=== PATIENT | female | born 1985 | race Caucasian/White ===

== ENCOUNTER 2021-11-23 10:25 | Outpatient (REF) | payer OTHER, SELFPAY ==
[2021-11-23 13:13] LABS: Binax Internal Control QC Valid; Binax Now Covid-19 Ag Negative (Negative)
[2021-11-23 13:14] LABS: Binax Lot number: 9864
== END 2021-11-23 10:26 | disposition home or self-care (01) ==
LOC: HO.LAB 10:25
PROVIDERS: Visit Provider Internal Medicine
DX: Z20.822 Contact with and (suspected) exposure to COVID-19 (principal)
CPT/HCPCS: 36415

== ENCOUNTER 2022-10-05 12:44 | Outpatient (REF) | payer OTHER, SELFPAY ==
[2022-10-05 14:26] LABS: Hematocrit 39.3 % (37.0-47.0); Mean Corpuscular HGB Conc 33.1 g/dl (31.0-35.0); Mean Corpuscular Volume 84.7 fL (80.0-98.0); Mean Platelet Volume 10.5 fL (9.4-12.3); Platelet Count 311 X10*3/uL (160-400); Red Blood Count 4.64 X10*6/uL (4.20-5.50); Red Cell Distribution Width 12.5 % (11.0-16.0); White Blood Count 9.6 X10*3/uL (4.8-10.8)
[2022-10-05 15:39] LABS: Alanine Aminotransferase 14 U/L (0-31); Albumin Level 4.6 g/dL (3.5-5.0); Alkaline Phosphatase 73 U/L (39-117); Anion Gap 13 (12-20); Aspartate Amino Transferase 16 U/L (5-31); Bilirubin Total 0.8 mg/dL (0.0-1.0); Blood Urea Nitrogen 13 mg/dL (9-16); Calcium 9.7 mg/dL (8.4-10.2); Carbon Dioxide 25 mmol/L (22-29); Chloride 105 mmol/L (96-108); Cholesterol 156 mg/dL; Estimated Glomerular Filt Rate > 60; Glucose Fasting 81 mg/dL (60-99); HDL Cholesterol 44 mg/dL; LDL Cholesterol Calculated 99 mg/dl; Sodium 139 mmol/L (135-145); TSH reflex Free T4 3.43 uIU/mL (0.32-4.0); Total Protein 7.9 g/dL (6.5-8.0); Triglycerides 69 mg/dL
== END 2022-10-05 12:45 | disposition home or self-care (01) ==
LOC: HO.WFDLDS 12:44
PROVIDERS: Visit Provider Hospitalist
DX: Z00.00 Encounter for general adult medical examination without abnormal findings (principal)
CPT/HCPCS: 36415; 80053; 80061; 84443; 85027

== ENCOUNTER 2025-02-24 15:39 | Outpatient (AMB) | payer OTHER, SELFPAY ==
--- NOTE | 2025-02-24 15:41 | MHC.PC.OV ---
Vital Signs 02/24/25 15:48 Height 5 ft 3 in Weight 137 lb 8 oz BMI 24.4 BP 112/60 Blood Pressure Location Rt brachial Position Sitting Respiration 12 Pulse 85 Pulse Source Pulse Oximeter Pulse Oximetry (%) 96 Oxygen Delivery Method Room Air Intake Visit Reasons: mariaa javier Intake Note: Glendy presents in the office for a MARIAA. Marzipan Molder Required: No Allergies metoclopramide [Reglan] Allergy (Mild, Verified 02/24/25 15:46) Abdominal Pain Tobacco use date assessed: 02/24/25 Dental Screening Did you have a dental visit in the last 12 months?: Yes Did you have a dental problem in the last 6 months where you did not have access to dental care?: No Was dental information given to patient?: Patient has dentist HPI HPI Comments History of Present Illness Details This is a 39-year-old female with a past medical history of asthma who presenting to establish care with me. She transferred from a provider who is no longer at the practice. She is accompanied by her daughter and her 1-year-old son. He also has a 10-year-old son. Patient has had a skin tag on her left eyelid for years. She saw [facility], but they told her they do not perform eyelid surgery. It has gotten bigger slowly over time. It itches. It bothers her every day. She also has a scalp cyst on the left side that has been there for years. It has not grown. It is never required incision and drainage, but it does hurt sometimes and she accidentally scratches it when she is trying to brush her hair. She has a history of environmental allergies. Patient says allergy testing in the past showed she was allergic to dust. Endorses sneezing and itching when she is cleaning leonid areas of the house. Also has dermatographism. 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 Patient endorses right lateral hip pain for a month. It comes and goes. No alleviating factors. It is worse in the morning after being in bed all night. It is described as sharp and aching. It does not radiate down the leg or to the abdomen. 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 She feels like this might be causing some of the pain on the right side. No trauma. No bruising or redness. No loss of bowel or bladder control, numbness, tingling or weakness associated with this. She has a history of anemia. She is overdue for routine labs. ROS: Constitutional: No unexplained weight loss, fever, chills Eyes: No vision changes, blurry vision, double vision, eye pain, eye redness, eye discharge. Respiratory: No shortness of breath Cardiovascular: No chest pain. Gastrointestinal: No anorexia, nausea, vomiting or diarrhea. No abdominal pain or blood in stool. Genitourinary: No dysuria, hematuria, urinary frequency. Neurologic: No headache, dizziness, syncope, unilateral weakness, ataxia, numbness or tingling in the extremities. Musculoskeletal: see HPI Hematologic/Lymphatics: No bleeding or bruising. Skin: see HPI Psychiatric: No depression or anxiety. Physical exam: Constitutional: Alert, in no distress. Eyes: Pupils are equal, round and reactive to light. Extraocular muscles intact. Respiratory: Clear to auscultation. Cardiovascular: S1 S2 regular. No murmurs. Gastrointestinal: Abdomen soft, non-tender, non-distended. Normal bowel sounds. Genitourinary: No costovertebral angle tenderness. Neurologic: No focal neurological deficits. Symmetric patellar reflexes. Moves all extremities spontaneously. Sensation intact bilaterally. Skin: There is a skin tag on the medial upper left eyelid. There is a quarter-sized firm palpable nodular lesion on the left occipital area without erythema, fluctuance or discharge. Musculoskeletal: Spine, hips, SI joints and back nontender to palpation. Full range of motion of the hips and lower back. No crepitus. Lower extremity strength 5/5 bilaterally. Extremities: Warm and well perfused. No clubbing, cyanosis or edema. FORMERLY [facility], [facility]–1983 Medical History (Updated 02/24/25 @ 17:15 by JERMAN Gonzalez) History of anemia Lesion of right eyelid Right hip pain Family History (Updated 02/24/25 @ 16:24 by Rena Maharaj MA) Mother Thyroid disease Carpal tunnel syndrome Maternal Grandmother Breast cancer Hypertension Cataract COPD (chronic obstructive pulmonary disease) Rheumatoid osteoperiostitis Maternal Grandfather Chronic kidney disease Hypertension Skin cancer COPD (chronic obstructive pulmonary disease) Diabetes Social History (Updated 02/24/25 @ 15:47 by Rena Maharaj MA) Housing: House Alcohol intake: never Patient Tobacco Use Status: Never used Tobacco e-Cigarette/Vaping Use: Never Used Second Hand Smoke Exposure: Yes Substance Use Type: Marijuana service: No Current occupational status: employed Current occupational exposures/hazards: No Cognitive needs: No Hearing needs: No Vision needs: No Questionnaire PHQ-9 Over the last 2 weeks, how often have you been bothered by any of the following problems? 1. Little interest or pleasure in doing things: not at all 2. Feeling down, depressed, or hopeless: not at all 3. Trouble falling or staying asleep, or sleeping too much: not at all 4. Feeling tired or having little energy: nearly every day 5. Poor appetite or overeating: not at all 6. Feeling bad about yourself - or that you are a failure or have let yourself or your family down: not at all 7. Trouble concentrating on things, such as reading the newspaper or watching television: not at all 8. Moving or speaking so slowly that other people could have noticed. Or the opposite - being so fidgety or restless that you have been moving around a lot more than usual: not at all 9. Thoughts that you would be better off or of hurting yourself in some way: not at all Total score: 3 Depression Screening Interpretation: Negative Depression Screening Done: Yes 13921 - PHQ-9 Billing: Patient declined-do not bill Source: Developed by Drs. Jimmy Dean, Tika Reaves, Peter Hernández and colleagues, with an educational rafiq from [employer]. Thrive Questionnaire Date Thrive assessed: 02/24/25 I am a: Patient What is your living situation today?: I have a steady place to live Within the past 12 months, did the food you bought not last and you didn't have the money to get more?: Never true Within the past 12 months, did you worry whether your food would run out before you got money to buy more?: Never true Do you have trouble paying for medicines?: No Do you have trouble getting transportation to medical appointments?: No Do you have trouble paying your heating and electricity bill?: No Do you have trouble taking care of your child, family member or friend?: No Do you have trouble with day-to-day activities such as bathing, preparing meals, shopping, managing finances, etc.?: No Are you currently unemployed and looking for a job?: No Are you interested in more education?: No Please select the resources that you would like help with: None Currently or been in a relationship where the following occur: No concerns reported THRIVE Score: 0 AUDIT C Alcohol Use Questionnaire (AUDIT-C) 1. How often do you have a drink containing alcohol?: Never Total Score: 0 CLEOPATRA-7 AMB Questionnaire CLEOPATRA-7 Date CLEOPATRA - 7 assessed: 02/24/25 Feeling nervous, anxious, or on edge: 0 = Not at all Not being able to stop or control worryin = Not at all Worrying too much about different things: 0 = Not at all Trouble relaxin = Not at all Being so restless that it is hard to sit still: 0 = Not at all Becoming easily annoyed or irritable: 0 = Not at all Feeling afraid as if something awful might happen: 0 = Not at all Total CLEOPATRA-7 score (0-4 normal; 5-9 mild; 10-14 moderate; 15-21 severe): 0 Source: Developed by Drs. Jimmy Dean, Tika Reaves, Peter Hernández and colleagues, with an educational rafiq from [employer]. CLEOPATRA-7 Assessment Billing CLEOPATRA-7 Assessment Tool: CLEOPATRA-7 Assessment 28376 Physical exam (Primary Care) Vital Signs: Last Vital Signs Pulse 85 02/24/25 15:48 Resp 12 02/24/25 15:48 BP 112/60 02/24/25 15:48 Pulse Ox 96 02/24/25 15:48 Oxygen Delivery Method Room Air 02/24/25 15:48 BMI result Body Mass Index 24.4 Tobacco/Smoking Status: Tobacco use Status Tobacco use date assessed 02/24/25 02/24/25 15:53 Patient Tobacco Use Status Never used Tobacco 02/24/25 15:47 e-Cigarette/Vaping Use Never Used 02/24/25 15:53 PHQ-9: PHQ-9 Score PHQ-9: Total score 3 02/24/25 16:07 Depression Screening Interpretation: Negative Thrive Assessment: Date of Thrive Assessment Date Thrive assessed 02/24/25 02/24/25 15:53 Currently or been in a relationship where the following occur: No concerns reported Coding Level of Care Code Est Pt Level 4 (61436) Complex EM visit Add On G2211 Diagnoses Scalp cyst L72.9 Lesion of right eyelid H02.9 Right hip pain M25.551 History of anemia Z86.2 Screening for cardiovascular condition Z13.6 Additional Codes CLEOPATRA-7 Assessment Billing - CLEOPATRA-7 Assessment Tool: CLEOPATRA-7 Assessment 79957 ([id number]) Assessment & Plan Assessment & Plan (1) Scalp cyst: Code(s): L72.9 - Follicular cyst of the skin and subcutaneous tissue, unspecified Category: Medical Plan: Referred to dermatology. (2) Lesion of right eyelid: Code(s): H02.9 - Unspecified disorder of eyelid Category: Medical Plan: Refer to Plastic surgery. (3) Right hip pain: Code(s): M25.551 - Pain in right hip Category: Medical Plan: Check x-ray. She can try heat, ice and Tylenol as needed. Do not exceed 3000 mg per day. Refer to physical therapy if x-ray is negative. (4) History of anemia: Code(s): Z86.2 - Personal history of diseases of the blood and blood-forming organs and certain disorders involving the immune mechanism Category: Medical Plan: Check labs. (5) Screening for cardiovascular condition: Code(s): Z13.6 - Encounter for screening for cardiovascular disorders Plan Follow up in 8 weeks to recheck hip pain and for a physical exam. Orders: Orders TSH reflex Free T4 Today H02.9 - Unspecified disorder of eyelid, Z13.6 - Encounter for screening for cardiovascular disorders, Z86.2 - Personal history of diseases of the blood and blood-forming organs and certain disorders involving the immune mechanism Comprehensive Met. Panel Today H02.9 - Unspecified disorder of eyelid, Z13.6 - Encounter for screening for cardiovascular disorders, Z86.2 - Personal history of diseases of the blood and blood-forming organs and certain disorders involving the immune mechanism Complete Blood Count no Diff Today H02.9 - Unspecified disorder of eyelid, Z13.6 - Encounter for screening for cardiovascular disorders, Z86.2 - Personal history of diseases of the blood and blood-forming organs and certain disorders involving the immune mechanism Lipid Panel Today E78.5 - Hyperlipidemia, unspecified, H02.9 - Unspecified disorder of eyelid, Z13.6 - Encounter for screening for cardiovascular disorders, Z86.2 - Personal history of diseases of the blood and blood-forming organs and certain disorders involving the immune mechanism XR hip RT w PEL1V Today M25.551 - Pain in right hip Vitamin B12 Today H02.9 - Unspecified disorder of eyelid, Z13.6 - Encounter for screening for cardiovascular disorders, Z86.2 - Personal history of diseases of the blood and blood-forming organs and certain disorders involving the immune mechanism, Z91.89 - Other specified personal risk factors, not elsewhere classified Vitamin D 25-OH (D2 and D3) Today H02.9 - Unspecified disorder of eyelid, M85.80 - Other specified disorders of bone density and structure, unspecified site, Z13.6 - Encounter for screening for cardiovascular disorders, Z86.2 - Personal history of diseases of the blood and blood-forming organs and certain disorders involving the immune mechanism IRON PROFILE Today H02.9 - Unspecified disorder of eyelid, Z13.6 - Encounter for screening for cardiovascular disorders, Z86.2 - Personal history of diseases of the blood and blood-forming organs and certain disorders involving the immune mechanism Ferritin Today H02.9 - Unspecified disorder of eyelid, Z13.6 - Encounter for screening for cardiovascular disorders, Z86.2 - Personal history of diseases of the blood and blood-forming organs and certain disorders involving the immune mechanism
[2025-02-24 15:48] VITALS: BP 112/60; PULSE 85; RESP 12; O2SAT 96; BMI 24.4
--- OUTSIDE RECORDS SUMMARY | 2025-02-24 18:24 | XMS_ITS | Clinical Summary ---
Author Organization [facility] ity Address [address] [place] [address] Care Team Providers Care Glass Products Inspector Name Role Phone Unavailable Primary Care Provider Unavailabl e Social History Tobacco Use Types Packs/Day Years Used Date Smoking Tobacco: Never Assessed Comments Unknown Sex and Gender Information Value Date Recorded Sex Assigned at Not on file Legal Sex Female 4:36 AM EST Gender Identity Not on file Sexual Orientation Not on file Plan of Treatment Health Maintenance Due Date Last Done Comments DTaP,Tdap,and Td Vaccines (1 - Tdap) 2005 Hepatitis B Vaccines (1 of 3 - 19+ 3-dose series) 2005 Cervical Cancer Screening: P ap Smear 2007 Depression Screening 12/19/2023 HIV Screening 12/19/2023 Hepatitis C Screening 12/19/2023 Social Influencers of Health Screening 12/19/2023 COVID-19 Vaccine (2023-2 5 season) 2024 Influenza Vaccine (#1) 2024 HIB Vaccines Aged Out No longer eligi ble based on patient's age to complete this topic HPV Vaccines Aged Out No longer eligi ble based on patient's age to complete this topic Hepatitis A Vaccines Aged Out No long er eligible based on patient's age to complete this topic IPV Vaccines Aged Out No longer eligi ble based on patient's age to complete this topic MMR Vaccines Aged Out No longer eligi ble based on patient's age to complete this topic Meningococcal ACWY Vaccine Aged Out N o longer eligible based on patient's age to complete this topic Meningococcal B Vaccine Aged Out No l onger eligible based on patient's age to complete this topic Pneumococcal Vaccine: Pediat rics (0 to 5 Years) and At-Risk Patients (6 to 64 Years) Aged Out No longer eligible b ased on patient's age to complete this topic RSV Immunization Patients Un lolita 20 months Aged Out No longer eligible b ased on patient's age to complete this topic Varicella Vaccines Aged Out No longer eligible based on patient's age to complete this topic
== END 2025-02-24 16:18 | disposition home or self-care (01) ==
LOC: HO.HMCFM 15:39
PROVIDERS: PCP Physician Assistant Medical; Visit Provider Physician Assistant Medical
DX: L72.9 Follicular cyst of the skin and subcutaneous tissue, unspecified (principal); H02.9 Unspecified disorder of eyelid; M25.551 Pain in right hip; Z86.2 Personal history of diseases of the blood and blood-forming organs and certain disorders involving the immune mechanism; Z13.6 Encounter for screening for cardiovascular disorders

== ENCOUNTER → 2025-02-24 15:39 | Outpatient (BNVA) | payer OTHER, SELFPAY | PROVIDERS: PCP Physician Assistant Medical; Visit Provider Physician Assistant Medical | DX: L72.9 Follicular cyst of the skin and subcutaneous tissue, unspecified (principal); H02.9 Unspecified disorder of eyelid; M25.551 Pain in right hip; E78.5 Hyperlipidemia, unspecified; Z86.2 Personal history of diseases of the blood and blood-forming organs and certain disorders involving the immune mechanism | CPT/HCPCS: 96127; 99212 ==

== ENCOUNTER 2025-02-25 08:48 | Outpatient (REF) | payer OTHER, SELFPAY ==
--- OUTSIDE RECORDS SUMMARY | 2025-02-25 09:20 | XMS_ITS | Clinical Summary ---
Author Organization [facility] ity Address [address] [place] [address] Care Team Providers Care Diagnostic Technologist Name Role Phone Unavailable Primary Care Provider [...]
[2025-02-25 09:29] LABS: Hemoglobin 12.4 g/dl (12.0-16.0); Mean Corpuscular HGB Conc 32.6 g/dl (31.0-35.0); Mean Corpuscular Hemoglobin 27.4 pg (27.0-33.0); Mean Corpuscular Volume 84.1 fL (80.0-98.0); Mean Platelet Volume 10.4 fL (9.4-12.3); Platelet Count 272 X10*3/uL (160-400); Red Blood Count 4.52 X10*6/uL (4.20-5.50); Red Cell Distribution Width 13.7 % (11.0-16.0)
[2025-02-25 10:19] LABS: Alanine Aminotransferase 18 U/L (0-31); Albumin Level 4.4 g/dL (3.5-5.0); Alkaline Phosphatase 125 U/L (39-117); Anion Gap 11 (12-20); Aspartate Amino Transferase 20 U/L (5-31); Bilirubin Total 0.5 mg/dL (0.0-1.0); Blood Urea Nitrogen 13 mg/dL (9-16); Calcium 9.7 mg/dL (8.4-10.2); Carbon Dioxide 25 mmol/L (22-29); Chloride 108 mmol/L (96-108); Cholesterol 162 mg/dL (<200); Estimated Glomerular Filt Rate > 60; Glucose Random 92 mg/dL (60-115); HDL Cholesterol 46 mg/dL (>40); Iron 97 mcg/dL (30-160); LDL Cholesterol Calculated 105 mg/dL (<100); Percent Iron Saturation 26 % (15-50); Sodium 140 mmol/L (135-145); Total Iron Binding Capacity 373 mcg/dL (228-428); Total Protein 7.7 g/dL (6.5-8.0); Triglycerides 56 mg/dL (<150); Unsaturated Iron Binding 276 ug/dL
[2025-02-25 10:38] LABS: Ferritin 26 ng/mL (10-122); TSH reflex Free T4 3.02 uIU/mL (0.32-4.0)
[2025-02-25 10:40] LABS: Vitamin B12 648 pg/mL (200-900)
[2025-03-01 15:59] LABS: Vitamin D 25-OH, D2 <4 ng/mL; Vitamin D 25-OH, D3 26 ng/mL; Vitamin D 25-OH, Total 26 ng/mL (30-100)
== END 2025-02-25 08:49 | disposition home or self-care (01) ==
LOC: HO.LAB 08:48
PROVIDERS: PCP Physician Assistant Medical; Visit Provider Physician Assistant Medical
DX: H02.9 Unspecified disorder of eyelid (principal); Z86.2 Personal history of diseases of the blood and blood-forming organs and certain disorders involving the immune mechanism; Z13.6 Encounter for screening for cardiovascular disorders; E78.5 Hyperlipidemia, unspecified; Z91.89 Other specified personal risk factors, not elsewhere classified; M85.80 Other specified disorders of bone density and structure, unspecified site
CPT/HCPCS: 36415; 80053; 80061; 82306; 82607; 82728; 83540; 84443; 85027

== ENCOUNTER 2025-04-07 11:19 | Outpatient (REF) | payer OTHER, SELFPAY ==
--- NOTE | ~2025-04-07 | XR_ITS ---
EXAMINATION: XR HIP, RIGHT CLINICAL INFORMATION: M25.551 - Pain in right hip COMPARISON: None available. TECHNIQUE: AP pelvis, and 2 views of the right hip. FINDINGS: No fracture, dislocation, or suspicious bone lesion. Normal alignment of both hip joints. Joint spaces preserved. No significant arthropathy identified of either hip. Femoral heads are normal in contour without evidence of AVN. No soft tissue abnormalities. XR/XR hip RT w PEL1V IMPRESSION: Normal pelvis and right hip. Electronically signed by: New Kim MD 04/07/2025 11:54 AM EDT
--- OUTSIDE RECORDS SUMMARY | 2025-04-07 12:04 | XMS_ITS | Clinical Summary ---
Author Organization [facility] ity Address [address] [place] [address] Care Team Providers Care Childbirth Educator Name Role Phone Unavailable Primary Care Provider [...] Vaccine (2023-2 5 season) 2024 Influenza Vaccine (Season Ended) 2025 HIB Vaccines Aged Out No longer eligi [...]
== END 2025-04-07 11:20 | disposition home or self-care (01) ==
LOC: HO.XRAY 11:19
PROVIDERS: PCP Physician Assistant Medical; Visit Provider Physician Assistant Medical
DX: M25.551 Pain in right hip (principal)
CPT/HCPCS: 73502

== ENCOUNTER → 2025-04-07 11:25 | Outpatient (BNV) | payer OTHER, SELFPAY | PROVIDERS: PCP Physician Assistant Medical; Visit Provider Radiology Diagnostic Radiology | DX: M25.551 Pain in right hip (principal) | CPT/HCPCS: 73502 ==

== ENCOUNTER 2025-05-01 11:46 | Outpatient (AMB) | payer OTHER, SELFPAY ==
--- NOTE | 2025-05-01 11:56 | A.OFFPC_ITS ---
Vital Signs 05/01/25 12:02 Height 5 ft 3 in Weight 136 lb 2 oz BMI 24.1 BP 122/68 Blood Pressure Location Lt brachial Position Sitting Respiration 12 Pulse 83 Pulse Source Pulse Oximeter Temp 97.4 F Temp Source Temporal Artery Scan Pulse Oximetry (%) 100 Oxygen Delivery Method Room Air Intake Visit Reasons: physical exam Intake Note: Glendy presents in the office today for her annual physical. Allergies metoclopramide [Reglan] Allergy (Mild, Verified 05/01/25 12:01) Abdominal Pain Medication List - Last Reconciled 05/01/25 by JERMAN Gonzalez albuterol sulfate 90 mcg/actuation (Ventolin HFA) 2 puffs inhalation Q4-6H PRN 1 month cholecalciferol (vitamin D3) 25 mcg PO DAILY Tobacco use date assessed: 05/01/25 Dental Screening Dental Screen Date: 05/01/25 Did you have a dental visit in the last 12 months?: Yes Did you have a dental problem in the last 6 months where you did not have access to dental care?: No Was dental information given to patient?: Patient has dentist HPI HPI Comments History of Present Illness Details This is a 39-year-old female with a past medical history of asthma presenting for a physical exam. Patient endorses intermittent pressure sometimes in the right eye, sometimes in the left eye or in both eyes. This started about a month ago. It lasts 5-10 minutes. No headache, vision changes or loss of vision, discharge, eye redness, sinus symptoms, fevers or chills. She has not seen an eye doctor recently. I referred her to [facility] eye care and provided her with the contact number. I also advised the patient to go to the ER if she develops vision changes, severe pain or pressure, headache or other concerning symptoms. Denies eye pressure today. Patient has had a skin tag on her left eyelid for years. She saw [facility], but they told her they do not perform eyelid surgery. It has gotten bigger slowly over time. It itches. It bothers her every day. I referred her to Plastic surgery, and it was sent to [facility]. She is unclear about this, but she thinks they may have called and said that they do not perform this procedure, but at the same time she says an appointment may have been booked. The office will contact [facility] to investigate this. I referred her to Dermatology for the scalp cyst we discussed previously. She has an appointment scheduled [facility], but she does not know what it is. She thinks they were booking pretty far out. I referred her to General surgery to see if she can be seen sooner. She continues to endorse right lateral hip pain. It comes and goes. No alleviating factors. It is worse in the morning after being in bed all night. It is described as sharp and aching. It does not radiate down the leg or to the abdomen. 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 She feels like this might be causing some of the pain on the right side. No trauma. No bruising or redness. No loss of bowel or bladder control, numbness, tingling or weakness associated with this. X-ray was negative. She would like an x-ray of her back because she was told that she had scoliosis in the past. Order placed. I also referred her to physical therapy. We reviewed her lab work because she did not see the portal message. She will start the vitamin-D supplement. I sent this again to the pharmacy. Patient reports she is up-to-date with Tdap-received during . ROS: Constitutional: No unexplained weight loss, fever, chills, fatigue or night sweats. Eyes: No vision changes, blurry vision, double vision, eye redness, eye discharge. See HPI ENT: No hearing loss, sneezing, congestion, runny nose or sore throat. Respiratory: No shortness of breath, cough or sputum production. Cardiovascular: No chest pain, chest pressure or chest discomfort. No palpitations or pedal edema. Gastrointestinal: No anorexia, nausea, vomiting or diarrhea. No abdominal pain or blood in stool. Genitourinary: No dysuria, hematuria, urinary frequency. Neurologic: No headache, dizziness, syncope, unilateral weakness, ataxia, numbness or tingling in the extremities. Musculoskeletal: See HPI Hematologic/Lymphatics: No bleeding or bruising. No painful lymph nodes. Skin: No rash Endocrine: No cold or heat intolerance. No polyuria or polydipsia. Psychiatric: No depression or anxiety. No SI/HI. Physical exam: Constitutional: Alert, in no distress. Head: Normocephalic. Eyes: Pupils are equal, round and reactive to light. Extraocular muscles intact. Ear, Nose and Throat: Canals clear. TMs normal. Normal nasal mucosa. No nasal discharge. No oral lesions. Neck: Supple, Full range of motion. No lymphadenopathy. No palpable thyroid masses. Respiratory: Clear to auscultation. Cardiovascular: S1 S2 regular. No murmurs. Gastrointestinal: Abdomen soft, non-tender, non-distended. Normal bowel sounds. No palpable masses. Neurologic: No focal neurological deficits. Symmetric patellar reflexes. Moves all extremities spontaneously. Sensation intact bilaterally. Skin: There is a skin tag on the medial upper left eyelid. There is a quarter- sized firm palpable nodular lesion on the left occipital area without erythema, fluctuance or discharge. Musculoskeletal: No gross deformities. Normal range of motion. Extremities: Warm and well perfused. No clubbing, cyanosis or edema. 3+ peripheral pulses bilaterally. Psychiatric: Normal mood and affect COUNT INCLUDES THE [facility] Medical History (Updated 05/01/25 @ 13:38 by JERMAN Gonzalez) Routine physical examination Eye pressure Scoliosis Lesion of left eyelid History of anemia Right hip pain Family History Mother Thyroid disease Carpal tunnel syndrome Maternal Grandmother Breast cancer Hypertension Cataract COPD (chronic obstructive pulmonary disease) Rheumatoid osteoperiostitis Maternal Grandfather Chronic kidney disease Hypertension Skin cancer COPD (chronic obstructive pulmonary disease) Diabetes Social History (Updated 05/01/25 @ 12:02 by Rena Maharaj MA) Housing: House Alcohol intake: never Patient Tobacco Use Status: Never used Tobacco e-Cigarette/Vaping Use: Never Used Second Hand Smoke Exposure: Yes Substance Use Type: Marijuana service: No Current occupational status: employed Current occupational exposures/hazards: No Cognitive needs: No Hearing needs: No Vision needs: No Questionnaire PHQ-9 Over the last 2 weeks, how often have you been bothered by any of the following problems? 1. Little interest or pleasure in doing things: not at all 2. Feeling down, depressed, or hopeless: not at all 3. Trouble falling or staying asleep, or sleeping too much: not at all 4. Feeling tired or having little energy: several days 5. Poor appetite or overeating: not at all 6. Feeling bad about yourself - or that you are a failure or have let yourself or your family down: not at all 7. Trouble concentrating on things, such as reading the newspaper or watching television: not at all 8. Moving or speaking so slowly that other people could have noticed. Or the opposite - being so fidgety or restless that you have been moving around a lot more than usual: not at all 9. Thoughts that you would be better off or of hurting yourself in some way: not at all Total score: 1 Depression Screening Interpretation: Negative Depression Screening Done: Yes 45003 - PHQ-9 Billing: Yes Source: Developed by Drs. Jimmy Dean, Tika Reaves, Peter Hernández and colleagues, with an educational rafiq from [employer]. Thrive Questionnaire Date Thrive assessed: 05/01/25 I am a: Patient What is your living situation today?: I have a steady place to live Within the past 12 months, did the food you bought not last and you didn't have the money to get more?: Never true Within the past 12 months, did you worry whether your food would run out before you got money to buy more?: Never true Do you have trouble paying for medicines?: No Do you have trouble getting transportation to medical appointments?: No Do you have trouble paying your heating and electricity bill?: No Do you have trouble taking care of your child, family member or friend?: No Do you have trouble with day-to-day activities such as bathing, preparing meals, shopping, managing finances, etc.?: No Are you currently unemployed and looking for a job?: No Are you interested in more education?: No Please select the resources that you would like help with: None Currently or been in a relationship where the following occur: No concerns reported THRIVE Score: 0 CLEOPATRA-7 AMB Questionnaire CLEOPATRA-7 Date CLEOPATRA - 7 assessed: 05/01/25 Feeling nervous, anxious, or on edge: 0 = Not at all Not being able to stop or control worryin = Not at all Worrying too much about different things: 0 = Not at all Trouble relaxin = Not at all Being so restless that it is hard to sit still: 0 = Not at all Becoming easily annoyed or irritable: 1 = Several days Feeling afraid as if something awful might happen: 0 = Not at all Total CLEOPATRA-7 score (0-4 normal; 5-9 mild; 10-14 moderate; 15-21 severe): 1 Source: Developed by Drs. Jimmy Dean, Tika Reaves, Peter Hernández and colleagues, with an educational rafiq from [employer]. CLEOPATRA-7 Assessment Billing CLEOPATRA-7 Assessment Tool: CLEOPATRA-7 Assessment 96739 Physical exam (Primary Care) Vital Signs: Last Vital Signs Temp 97.4 F 05/01/25 12:02 Pulse 83 05/01/25 12:02 Resp 12 05/01/25 12:02 BP 122/68 05/01/25 12:02 Pulse Ox 100 05/01/25 12:02 Oxygen Delivery Method Room Air 05/01/25 12:02 BMI result Body Mass Index 24.1 Tobacco/Smoking Status: Tobacco use Status Tobacco use date assessed 05/01/25 05/01/25 11:58 Patient Tobacco Use Status Never used Tobacco 05/01/25 12:02 e-Cigarette/Vaping Use Never Used 05/01/25 12:02 PHQ-9: PHQ-9 Score PHQ-9: Total score 1 05/01/25 13:39 Depression Screening Interpretation: Negative Thrive Assessment: Date of Thrive Assessment Date Thrive assessed 05/01/25 05/01/25 11:58 Currently or been in a relationship where the following occur: No concerns reported Coding Level of Care Code Est Pt Prev Care 18-39y(99994) Diagnoses Routine physical examination Z00.00 Eye pressure H57.9 Scoliosis M41.9 Lesion of left eyelid H02.9 Right hip pain M25.551 Additional Codes CLEOPATRA-7 Assessment Billing - CLEOPATRA-7 Assessment Tool: CLEOPATRA-7 Assessment 96819 ([id number]) PHQ-9 - 77663 - PHQ-9 Billing: Yes ([id number]) Assessment & Plan Assessment & Plan (1) Routine physical examination: Code(s): Z00.00 - Encounter for general adult medical examination without abnormal findings Category: Medical Plan: Patient is seen today for a routine physical. As part of this visit we reviewed the following issues, which are considered and essential part of preventative health in this age group: - Breast Cancer screening - Annual Director Phone exam - Blood pressure screening - Cholesterol screening - Osteoporosis prevention including calcium/vitamin D intake, weight bearing exercise & smoking cessation - Nutritional and exercise counseling - Counseling of injury prevention including fire prevention, smoke alarms and seat belt usage - Screening for depression - Prevention of and/or testing for infectious diseases - Education about skin cancer - Recommendations about immunizations - Recommendation of an eye exam - Screening for substance abuse (2) Eye pressure: Code(s): H57.9 - Unspecified disorder of eye and adnexa Category: Medical (3) Scoliosis: Code(s): M41.9 - Scoliosis, unspecified Category: Medical (4) Lesion of left eyelid: Code(s): H02.9 - Unspecified disorder of eyelid Category: Medical (5) Right hip pain: Code(s): M25.551 - Pain in right hip Category: Medical Plan Follow up in 3 months Orders: Orders XR scoliosis survey Today M41.9 - Scoliosis, unspecified Referrals Ophthalmology Referral H57.9 - Unspecified disorder of eye and adnexa General Surgery Referral L72.9 - Follicular cyst of the skin and subcutaneous tissue, unspecified Medications: Refilled cholecalciferol (vitamin D3) 25 mcg PO DAILY 90 caps 1RF Patient Instructions: [facility] eye care AT physical therapy
[2025-05-01 12:02] VITALS: BP 122/68; PULSE 83; RESP 12; TEMP 36.3; O2SAT 100; BMI 24.1
--- OUTSIDE RECORDS SUMMARY | 2025-05-01 13:55 | XMS_ITS | Clinical Summary ---
Author Organization [facility] ity Address [address] [place] [address] Care Team Providers Care Shaft Repairer Name Role Phone Unavailable Primary Care Provider [...]
== END 2025-05-01 12:45 | disposition home or self-care (01) ==
LOC: HO.HMCFM 11:46
PROVIDERS: PCP Physician Assistant Medical; Visit Provider Physician Assistant Medical
DX: Z00.00 Encounter for general adult medical examination without abnormal findings (principal); H57.9 Unspecified disorder of eye and adnexa; M41.9 Scoliosis, unspecified; H02.9 Unspecified disorder of eyelid; M25.551 Pain in right hip

== ENCOUNTER → 2025-05-01 11:46 | Outpatient (BNVA) | payer OTHER, SELFPAY | PROVIDERS: PCP Physician Assistant Medical; Visit Provider Physician Assistant Medical | DX: Z00.00 Encounter for general adult medical examination without abnormal findings (principal); H57.9 Unspecified disorder of eye and adnexa; M41.9 Scoliosis, unspecified; H02.9 Unspecified disorder of eyelid; M25.551 Pain in right hip; L72.9 Follicular cyst of the skin and subcutaneous tissue, unspecified; Z13.31 Encounter for screening for depression; Z13.30 Encounter for screening examination for mental health and behavioral disorders, unspecified | CPT/HCPCS: 96127; 99395 ==

== ENCOUNTER 2025-06-05 11:31 | Outpatient (AMB) | payer OTHER, SELFPAY ==
--- NOTE | 2025-06-05 11:35 | MHC.OFFVIS ---
Vital Signs 06/05/25 11:47 Height 5 ft 3 in Weight 136 lb BMI 24.1 BP 136/65 Blood Pressure Location Lt brachial Position Sitting Pulse 72 Intake Visit Reasons: Follicular cyst of the skin Intake Note: Patient is seen in office for evaluation of a follicular cyst of the skin. Pt c/o: mass back of scalp, onset for yrs, minimal increase, at times has some odor denies redness, discharge, infections, no prior lumps removed Trading Floor Operator Required: No Accompanied by: Son Allergies metoclopramide (Reglan) Allergy (Mild, Verified 06/05/25 11:46) Abdominal Pain Medication List - Last Reconciled 06/05/25 by Carlin Sands MD albuterol sulfate 90 mcg/actuation (Ventolin HFA) 2 puffs inhalation Q4-6H PRN 1 month cholecalciferol (vitamin D3) 25 mcg PO DAILY HPI HPI Follicular cyst of the skin: Details: [age] year old female referred for a cyst on the scalp posteriorly. She says she has had this for many years. However, she thinks that this has increased in size. She says that this has been getting more uncomfortable and wants this removed. [facility] Medical History Routine physical examination Eye pressure Scoliosis Lesion of left eyelid History of anemia Right hip pain Family History Mother Thyroid disease Carpal tunnel syndrome Maternal Grandmother Breast cancer Hypertension Cataract COPD (chronic obstructive pulmonary disease) Rheumatoid osteoperiostitis Maternal Grandfather Chronic kidney disease Hypertension Skin cancer COPD (chronic obstructive pulmonary disease) Diabetes Social History Housing: House Alcohol intake: never Patient Tobacco Use Status: Never used Tobacco e-Cigarette/Vaping Use: Never Used Second Hand Smoke Exposure: Yes Substance Use Type: Marijuana service: No Current occupational status: employed Current occupational exposures/hazards: No Cognitive needs: No Hearing needs: No Vision needs: No Review of Systems Const Denies chills and Denies fever(s) Card Denies chest pain, Denies dyspnea and Denies dyspnea on exertion Resp Denies cough, Denies dyspnea and Denies dyspnea on exertion GI Denies hematochezia and Denies change in bowel habits Denies hematuria Musc Denies back pain and Denies limited range of motion Neuro Denies focal weakness and Denies convulsions Psych Denies depression and Denies mood swings Physical Exam Const General: comfortable and no acute distress Orientation/consciousness: patient oriented x3 HEENT Other: Occipital aspect of the scalp - cystic induration about 2.5 cm in diameter consistent with a scalp cyst, well-defined Neck Neck: Yes no lymphadenopathy Resp Auscultation: clear to auscultation bilaterally Cardio Rhythm: regular rhythm GI Palpation (GI): Soft to palpation, nontender and no guarding Neuro General: patient oriented x3 Assessment & Plan Assessment & Plan (1) Scalp cyst: Code(s): L72.9 - Follicular cyst of the skin and subcutaneous tissue, unspecified Category: Medical Plan I explained the technique of excision under local anesthesia. I reviewed the risks including but not limited to bleeding and infections, as well as the benefits and alternatives. She says she understands and wants to proceed. This will be done on her next visit in the office. Coding Level of Care Code New Pt Level 3 (82122) Diagnoses Scalp cyst L72.9
[2025-06-05 11:47] VITALS: BP 136/65; PULSE 72; BMI 24.1
--- OUTSIDE RECORDS SUMMARY | 2025-06-05 12:21 | XMS_ITS | Clinical Summary ---
Author Organization [facility] ity Address [address] [place] [address] Care Team Providers Care Manager Lsw Name Role Phone Unavailable Primary Care Provider [...] (2023-2 5 season) 2024 Influenza Vaccine (#1) 2025 HIB Vaccines Aged Out No longer [...] 5 Years) and At-Risk Patients (6 to 49 Years) Aged Out No longer eligible b ased on patient's age to complete this topic RSV Immunization Patients Un lolita 20 months Aged Out No longer eligible b ased on patient's age to complete this topic Varicella Vaccines Aged Out No longer eligible based on patient's age to complete this topic
== END 2025-06-05 11:56 | disposition home or self-care (01) ==
LOC: HO.HGS 11:32
PROVIDERS: PCP Physician Assistant Medical; Visit Provider Surgery
DX: L72.9 Follicular cyst of the skin and subcutaneous tissue, unspecified (principal)
CPT/HCPCS: 99203

== ENCOUNTER → 2025-06-05 11:31 | Outpatient (BNVA) | payer OTHER, SELFPAY | PROVIDERS: PCP Physician Assistant Medical; Visit Provider Surgery | DX: L72.9 Follicular cyst of the skin and subcutaneous tissue, unspecified (principal) | CPT/HCPCS: 99202 ==

== ENCOUNTER 2025-07-14 12:45 | Outpatient (REF) | payer OTHER, SELFPAY | END 2025-07-14 12:46 | disposition home or self-care (01) | LOC: HO.LNP 12:45 | PROVIDERS: PCP Physician Assistant Medical; Visit Provider Surgery | DX: L72.11 Pilar cyst (principal) | CPT/HCPCS: 11423; 88304 ==

== ENCOUNTER 2025-07-14 12:45 | Outpatient (AMB) | payer OTHER, SELFPAY ==
--- NOTE | 2025-07-14 12:49 | MHC.OFFVIS ---
Vital Signs 07/14/25 12:50 Height 5 ft 3 in Weight 135 lb BMI 23.9 BP 124/72 Blood Pressure Location Rt brachial Position Sitting Pulse 78 Intake Visit Reasons: excision Follicular cyst of the skin Intake Note: Patient here for excision of pilar cyst on scalp. Bill Board Poster Required: No Accompanied by: toddler son Allergies metoclopramide (Reglan) Allergy (Mild, Verified 07/14/25 12:56) Abdominal Pain HPI HPI excision Follicular cyst of the skin: Details: She is here for excision of a scalp cyst. [facility] Medical History Routine physical examination Eye pressure Scoliosis Lesion of left eyelid History of anemia Right hip pain Family History Mother Thyroid disease Carpal tunnel syndrome Maternal Grandmother Breast cancer Hypertension Cataract COPD (chronic obstructive pulmonary disease) Rheumatoid osteoperiostitis Maternal Grandfather Chronic kidney disease Hypertension Skin cancer COPD (chronic obstructive pulmonary disease) Diabetes Social History Housing: House Alcohol intake: never Patient Tobacco Use Status: Never used Tobacco e-Cigarette/Vaping Use: Never Used Second Hand Smoke Exposure: Yes Substance Use Type: Marijuana service: No Current occupational status: employed Current occupational exposures/hazards: No Cognitive needs: No Hearing needs: No Vision needs: No Physical Exam Vital Signs: Last Vital Signs Pulse 78 07/14/25 12:50 BP 124/72 07/14/25 12:50 BMI result Body Mass Index 23.9 Office Procedures Excision Details: She was in reclining position with the head turned to the right. The area of the scalp cyst was prepped and draped. Lidocaine 1% was used for local anesthesia. I made an incision on the skin overlying the cyst with a blade 15. This carried down through the full-thickness of the skin. Immediately the capsule was visualized. I sharply dissected the capsule from the subcutaneous layer with Metzenbaum scissors until this was delivered. This measured about 2.2 cm. I closed the incision with full-thickness nylon 3-0 simple sutures. The procedure was completed. She tolerated procedure well. There were no immediate complications. 46589-Phvnxdkc scalp/neck/hands/feet/genitalia 2.1cm-3cm Procedure code (CPT) selection complete Assessment & Plan Assessment & Plan (1) Scalp cyst: Code(s): L72.9 - Follicular cyst of the skin and subcutaneous tissue, unspecified Category: Medical Plan: Excision was done without problems. She tolerated the procedure well. There were no immediate complications. She was given wound care instructions and we will be seen for removal sutures in about 2 weeks. Coding Level of Care Code Procedure Only Diagnoses Scalp cyst L72.9 CPT Codes Scalp/Neck/Hands/Feet/Genetalia - CPT: 07167-Aathitun scalp/neck/hands/feet/genitalia 2.1cm-3cm ([id number])
[2025-07-14 12:50] VITALS: BP 124/72; PULSE 78; BMI 23.9
--- OUTSIDE RECORDS SUMMARY | 2025-07-14 13:52 | XMS_ITS | Clinical Summary ---
Author Organization [facility] ity Address [address] [place] [address] Care Team Providers Care Strap Machine Operator Automatic Name Role Phone Unavailable Primary Care Provider [...] Cervical Cancer Screening: P ap Smear 2007 HIV Screening 12/19/2023 Hepatitis C Screening 12/19/2023 Social Influencers of Health Screening 12/19/2023 COVID-19 Vaccine ( - 2023-2 5 season) 2024 Depression Screening 11/20/2024 Influenza Vaccine (#1) 2025 HIB Vaccines Aged [...]
== END 2025-07-14 13:23 | disposition home or self-care (01) ==
LOC: HO.HGS 12:46
PROVIDERS: PCP Physician Assistant Medical; Visit Provider Surgery
DX: L72.0 Epidermal cyst (principal)
CPT/HCPCS: 11423

== ENCOUNTER 2025-07-28 13:07 | Outpatient (AMB) | payer OTHER, SELFPAY ==
--- NOTE | 2025-07-28 13:37 | MHC.OFFVIS ---
Vital Signs 07/28/25 13:41 Height 5 ft 3 in Weight 136 lb 10.986 oz BMI 24.2 Intake Visit Reasons: s/p exc cyst~ scalp Intake Note: Patient is seen in office for post op assessment post excision of scalp cyst. Pt c/o: denies any concerns Automobile Service Advisor Required: No Accompanied by: Son Allergies metoclopramide (Reglan) Allergy (Mild, Verified 07/14/25 12:56) Abdominal Pain HPI HPI s/p exc cyst~ scalp: Details: Doing well, had some pain for the 1st day but this has resolved. Denies fevers or chills. Denies discharge from the area. Does report that it has been itchy lately [facility] Medical History Routine physical examination Eye pressure Scoliosis Lesion of left eyelid History of anemia Right hip pain Family History Mother Thyroid disease Carpal tunnel syndrome Maternal Grandmother Breast cancer Hypertension Cataract COPD (chronic obstructive pulmonary disease) Rheumatoid osteoperiostitis Maternal Grandfather Chronic kidney disease Hypertension Skin cancer COPD (chronic obstructive pulmonary disease) Diabetes Social History Housing: House Alcohol intake: never Patient Tobacco Use Status: Never used Tobacco e-Cigarette/Vaping Use: Never Used Second Hand Smoke Exposure: Yes Substance Use Type: Marijuana service: No Current occupational status: employed Current occupational exposures/hazards: No Cognitive needs: No Hearing needs: No Vision needs: No Review of Systems Const All systems reviewed & are unremarkable except as noted in HPI and below Physical Exam Vital Signs: BMI result Body Mass Index 24.2 Const General: comfortable and no acute distress Orientation/consciousness: patient oriented x3 HEENT Other: Posterior scalp excision site: 2 cm well healed excision site. Moderate scabbing in the area [address] Resp Effort & Inspection: normal respiratory effort and able to speak in complete sentences Neuro General: patient oriented x3 Assessment & Plan Assessment & Plan (1) Scalp cyst: Comment: S/p excision Code(s): L72.9 - Follicular cyst of the skin and subcutaneous tissue, unspecified Category: Medical Plan 39-year-old female s/p excision of scalp cyst presenting to the office for routine follow up and suture removal. Overall patient has been doing well. She had pain for about a day after but this has resolved. There was no discharge or drainage that she has noted. She denies fevers or chills at home. On exam the excision site appears to be healing well. There is a moderate amount of scabbing over the sutures. There was no discharge or redness surrounding the area and this was nontender to palpation. I removed 3 sutures in the office, she tolerated this well. There were no complications. We reviewed the pathology results showing a benign Pilar cyst. Patient no longer requiring follow up, can return with any questions or concerns in the future. Coding Level of Care Code Est Pt Level 3 (25545) Diagnoses Scalp cyst L72.9
[2025-07-28 13:41] VITALS: BMI 24.2
--- OUTSIDE RECORDS SUMMARY | 2025-07-28 15:32 | XMS_ITS | Clinical Summary ---
Author Organization [facility] ity Address [address] [place] [address] Care Team Providers Care Material Handling Warehouse Supervisor Name Role Phone Unavailable Primary Care Provider [...] 12/19/2023 Social Influencers of Health Screening 12/19/2023 Depression Screening 11/20/2024 COVID-19 Vaccine (2023-2 5 season) 2025 Influenza Vaccine (#1) 2025 HIB Vaccines Aged [...]
== END 2025-07-28 13:49 | disposition home or self-care (01) ==
LOC: HO.HGS 13:08
PROVIDERS: PCP Physician Assistant Medical
DX: L72.9 Follicular cyst of the skin and subcutaneous tissue, unspecified (principal)
CPT/HCPCS: 99213

== ENCOUNTER → 2025-07-28 13:07 | Outpatient (BNVA) | payer OTHER, SELFPAY | PROVIDERS: PCP Physician Assistant Medical | DX: L72.9 Follicular cyst of the skin and subcutaneous tissue, unspecified (principal) | CPT/HCPCS: 99212 ==

== ENCOUNTER 2025-08-04 10:58 | Outpatient (REF) | payer OTHER, SELFPAY ==
[2025-08-04 14:20] LABS: Appearance Urine Turbid; Glucose Urine UA Negative (Negative); PH 5.5 (5.0-9.0); Specific Gravity - Urine >= 1.030 (1.005-1.025); UMIC TRIGGER UA YES
[2025-08-11 13:58] LABS: Vitamin D 25-OH, D2 <4 ng/mL; Vitamin D 25-OH, D3 31 ng/mL; Vitamin D 25-OH, Total 31 ng/mL (30-100)
== END 2025-08-04 10:59 | disposition home or self-care (01) ==
LOC: HO.WFDLDS 10:58
PROVIDERS: PCP Physician Assistant Medical; Visit Provider Physician Assistant Medical
DX: R39.9 Unspecified symptoms and signs involving the genitourinary system (principal); M85.80 Other specified disorders of bone density and structure, unspecified site; M25.551 Pain in right hip; H57.9 Unspecified disorder of eye and adnexa; H02.9 Unspecified disorder of eyelid; R79.89 Other specified abnormal findings of blood chemistry; R39.15 Urgency of urination
CPT/HCPCS: 36415; 81001; 82306; 87086; 87088; 87186; 99212

== ENCOUNTER 2025-08-04 10:58 | Outpatient (AMB) | payer OTHER, SELFPAY ==
--- NOTE | 2025-08-04 11:22 | A.OFFPC_ITS ---
Vital Signs 08/04/25 11:26 Height 5 ft 3 in Weight 129 lb 4 oz BMI 22.9 BP 102/62 Blood Pressure Location Rt brachial Position Sitting Respiration 12 Pulse 82 Pulse Source Pulse Oximeter Temp 97.5 F Temp Source Temporal Artery Scan Pulse Oximetry (%) 95 Oxygen Delivery Method Room Air Intake Visit Reasons: hip/back/vit d Intake Note: Glendy presents in the office for a follow up to her hip, back and vitamin D. Allergies metoclopramide (Reglan) Allergy (Mild, Verified 08/04/25 11:25) Abdominal Pain Tobacco use date assessed: 08/04/25 Dental Screening Dental Screen Date: 08/04/25 Did you have a dental visit in the last 12 months?: Yes Did you have a dental problem in the last 6 months where you did not have access to dental care?: No Was dental information given to patient?: Patient has dentist HPI HPI Comments History of Present Illness Details This is a 39-year-old female with a past medical history of asthma presenting for follow up. Patient endorsed intermittent pressure sometimes in the right eye, sometimes in the left eye or in both eyes. It started a few months ago. No headache, vision changes or loss of vision. She saw Ophthalmology since her last visit, and she has a follow up test to check the pressure. Denies symptoms today. The skin tag on her left eyelid fell off so she does not need a referral for this any longer. Patient was seen by General surgery, and cyst on the back of the scalp was removed. No complications. Hip and back pain went away. Her son is older now so she carries him less, and she thinks she was straining her back and him before. Vitamin-D deficiency-she is on a supplement. She received the flu vaccine this season. She reports urinary urgency on and off for the last month. States she had a yeast infection at 1 point which was treated. Denies burning, frequency and hematuria. She has no symptoms now. ROS: Constitutional: No unexplained weight loss, fever, chills, fatigue or night sweats. Eyes: No vision changes, blurry vision, double vision, eye redness, eye discharge. See HPI Gastrointestinal: No anorexia, nausea, vomiting or diarrhea. No abdominal pain or blood in stool. Genitourinary: No dysuria, hematuria, urinary frequency. Denies flank and abdominal pain. Denies vaginal itching or bleeding. Neurologic: No headache, dizziness, syncope Physical exam: Constitutional: Alert, in no distress. Neck: Supple, Full range of motion. No lymphadenopathy. No palpable thyroid masses. Respiratory: Clear to auscultation. Cardiovascular: S1 S2 regular. No murmurs. Gastrointestinal: Abdomen soft, non-tender, non-distended. Normal bowel sounds. No palpable masses. : No CVA tenderness bilaterally Extremities: Warm and well perfused. No clubbing, cyanosis or edema. Psychiatric: Normal mood and affect [facility] Medical History (Updated 08/04/25 @ 13:19 by JERMAN Gonzalez) Urinary urgency Low vitamin D level Routine physical examination Eye pressure Scoliosis Lesion of left eyelid History of anemia Right hip pain Family History Mother Thyroid disease Carpal tunnel syndrome Maternal Grandmother Breast cancer Hypertension Cataract COPD (chronic obstructive pulmonary disease) Rheumatoid osteoperiostitis Maternal Grandfather Chronic kidney disease Hypertension Skin cancer COPD (chronic obstructive pulmonary disease) Diabetes Social History (Updated 08/04/25 @ 11:26 by Rena Maharaj MA) Housing: House Alcohol intake: never Patient Tobacco Use Status: Never used Tobacco e-Cigarette/Vaping Use: Never Used Second Hand Smoke Exposure: Yes Use of substances other than those prescribed or required for medical reasons: Yes Substance Use Type: Marijuana service: No Current occupational status: employed Current occupational exposures/hazards: No Cognitive needs: No Hearing needs: No Vision needs: No Questionnaire Thrive Questionnaire Date Thrive assessed: 02/14/25 I am a: Patient What is your living situation today?: I have a steady place to live Within the past 12 months, did the food you bought not last and you didn't have the money to get more?: Never true Within the past 12 months, did you worry whether your food would run out before you got money to buy more?: Never true Do you have trouble paying for medicines?: No Do you have trouble getting transportation to medical appointments?: No Do you have trouble paying your heating and electricity bill?: No Do you have trouble taking care of your child, family member or friend?: No Do you have trouble with day-to-day activities such as bathing, preparing meals, shopping, managing finances, etc.?: No Are you currently unemployed and looking for a job?: No Are you interested in more education?: No Please select the resources that you would like help with: None Currently or been in a relationship where the following occur: No concerns reported THRIVE Score: 0 AUDIT C Alcohol Use Questionnaire (AUDIT-C) 3. How often do you have six or more drinks on one occasion?: Never Total Score: 0 CLEOPATRA-7 AMB Questionnaire CLEOPATRA-7 Date CLEOPATRA - 7 assessed: 05/01/25 Source: Developed by Drs. Jimmy Dean, Tika Reaves, Peter Hernández and colleagues, with an educational rafiq from [employer]. Physical exam (Primary Care) Vital Signs: Last Vital Signs Temp 97.5 F 08/04/25 11:26 Pulse 82 08/04/25 11:26 Resp 12 08/04/25 11:26 BP 102/62 08/04/25 11:26 Pulse Ox 95 08/04/25 11:26 Oxygen Delivery Method Room Air 08/04/25 11:26 BMI result Body Mass Index 22.9 Tobacco/Smoking Status: Tobacco use Status Tobacco use date assessed 08/04/25 08/04/25 11:30 Patient Tobacco Use Status Never used Tobacco 08/04/25 11:26 e-Cigarette/Vaping Use Never Used 08/04/25 11:26 Thrive Assessment: Date of Thrive Assessment Date Thrive assessed 02/14/25 08/04/25 11:24 Currently or been in a relationship where the following occur: No concerns reported Coding Level of Care Code Est Pt Level 4 (72332) Complex EM visit Add On G2211 Diagnoses Right hip pain M25.551 Eye pressure H57.9 Lesion of left eyelid H02.9 Low vitamin D level R79.89 Urinary urgency R39.15 Assessment & Plan Assessment & Plan (1) Right hip pain: Code(s): M25.551 - Pain in right hip Category: Medical Plan: Resolved. (2) Eye pressure: Code(s): H57.9 - Unspecified disorder of eye and adnexa Category: Medical Plan: Following with Ophthalmology. She has a follow up scheduled for further testing. (3) Lesion of left eyelid: Code(s): H02.9 - Unspecified disorder of eyelid Category: Medical Plan: Resolved. (4) Low vitamin D level: Code(s): R79.89 - Other specified abnormal findings of blood chemistry Category: Medical Plan: Check vitamin-D level. Currently on supplementation. (5) Urinary urgency: Code(s): R39.15 - Urgency of urination Category: Medical Plan: Check UA and culture. Plan She has a physical scheduled in April 2026. Orders: Orders UA w Microscopic Today R39.9 - Unspecified symptoms and signs involving the genitourinary system Vitamin D 25-OH (D2 and D3) Today M85.80 - Other specified disorders of bone density and structure, unspecified site Urine Culture Today R39.9 - Unspecified symptoms and signs involving the genitourinary system
[2025-08-04 11:26] VITALS: BP 102/62; PULSE 82; RESP 12; TEMP 36.4; O2SAT 95; BMI 22.9
--- OUTSIDE RECORDS SUMMARY | 2025-08-04 14:44 | XMS_ITS | Clinical Summary ---
Author Organization [facility] ity Address [address] [place] [id number] Care Team Providers Care Reconditioner Name Role Phone Unavailable Primary Care Provider [...]
== END 2025-08-04 11:50 | disposition home or self-care (01) ==
LOC: HO.HMCFM 10:58
PROVIDERS: PCP Physician Assistant Medical; Visit Provider Physician Assistant Medical
DX: M25.551 Pain in right hip (principal); H57.9 Unspecified disorder of eye and adnexa; H02.9 Unspecified disorder of eyelid; R79.89 Other specified abnormal findings of blood chemistry; R39.15 Urgency of urination